=== PATIENT | female | born 1985 | race Native Hawaiian/Other Pacific Islander ===

== ENCOUNTER 2018-05-14 10:36 | Emergency (ER) | payer OTHER ==
[~2018-05-14] VITALS: Ht 167.6 cm; Wt 108.9 kg
[2018-05-14 10:40] VITALS: TEMP 97
[2018-05-14 11:49] VITALS: BP 129/74
== END 2018-05-14 11:50 | disposition home or self-care (01) ==
LOC: ED 10:36
DX: G43.809 Other migraine, not intractable, without status migrainosus (principal); R11.0 Nausea; R42 Dizziness and giddiness
CPT/HCPCS: 80307; 81000; 96372; 99283; J2175; J2405

== ENCOUNTER 2018-06-04 13:28 | Emergency (ER) | payer OTHER ==
[~2018-06-04] VITALS: Ht 167.6 cm; Wt 108.9 kg
[2018-06-04 13:39] VITALS: BP 125/70; TEMP 98.7
== END 2018-06-04 14:35 | disposition home or self-care (01) ==
LOC: ED 13:28
DX: R07.0 Pain in throat (principal)
CPT/HCPCS: 99281